=== PATIENT | male | born 1950 | race Caucasian/White ===

== ENCOUNTER 2017-03-17 08:03 | Emergency (ER) | payer SELFPAY ==
[~2017-03-17] VITALS: Ht 167.6 cm; Wt 63.6 kg
[2017-03-17] MEDS ORDERED: [UNRECOGNIZED DRUG - REMARK] PO (08:05)
[2017-03-17 10:03] VITALS: BP 149/87
== END 2017-03-17 10:13 | disposition home or self-care (01) ==
LOC: EMS 08:05
DX: M17.11 Unilateral primary osteoarthritis, right knee (principal); E11.9 Type 2 diabetes mellitus without complications; I10 Essential (primary) hypertension
CPT/HCPCS: 29505; 82962; 99283